=== PATIENT | female | born 1960 | race Caucasian/White ===

== ENCOUNTER 2018-05-22 19:53 | Emergency (ER) | payer BC ==
[~2018-05-22] VITALS: Ht 165.1 cm; Wt 94.3 kg
[2018-05-22 19:53] VITALS: BP_SYST 160
[2018-05-22] MEDS ORDERED: IBUPROFEN 600 MG TABLET PO ONE (22:15)
[2018-05-22 22:20] VITALS: BP_SYST 132
== END 2018-05-22 22:20 | disposition home or self-care (01) ==
LOC: SED 19:53
DX: M25.531 Pain in right wrist (principal); F17.200 Nicotine dependence, unspecified, uncomplicated; Z86.73 Personal history of transient ischemic attack (TIA), and cerebral infarction without residual deficits; Z98.51 Tubal ligation status; W01.0XXA Fall on same level from slipping, tripping and stumbling without subsequent striking against object, initial encounter; Y93.89 Activity, other specified; Y92.89 Other specified places as the place of occurrence of the external cause; Y99.8 Other external cause status
CPT/HCPCS: 99284